=== PATIENT | male | born 1955 | race Caucasian/White ===

== ENCOUNTER 2018-05-13 08:49 | Emergency (ER) | payer OTHER ==
--- NOTE | 2018-05-13 09:51 | UC ---
Shoulder Pain HPI - HPI Summary HPI Summary: PATIENT WORKS IN [employer]. DOES A LOT OF BENDING AND LIFTING. HAS HAD ONE WEEK OF INTERMITTENT LEFT SHOULDER PAIN. NO DISCRETE INJURY. ALSO HAD SOME INTERMITTENT LOW BACK PAIN BUT THIS SEEMS BETTER TODAY. - History of Current Complaint Chief Complaint: UCBackPain Stated Complaint: SHOULDER/BACK PAIN Time Seen by Provider: 05/13/18 09:36 Hx Obtained From: Patient Onset/Duration: Gradual Onset, Lasting Days, Still Present Timing: Intermittent Episode Lasting Severity Initially: Moderate Severity Currently: Moderate Location Of Pain: Is Discrete @ - LEFT SHOULDER Pain Intensity: 8 Pain Scale Used: 0-10 Numeric Character: Aching Aggravating Factor(s): Movement Alleviating Factor(s): Rest Associated Signs And Symptoms: Negative: Swelling, Redness, Bruising, Weakness Related History: Dominant Hand Right - Allergies/Home Medications Allergies/Adverse Reactions: Allergies Allergy/AdvReac Type Severity Reaction Status Date / Time No Known Allergies Allergy Verified 05/13/18 09:04 PMH/Surg Hx/FS Hx/Imm Hx Previously Healthy: Yes - Surgical History Surgical History: Yes Surgery Procedure, Year, and Place: nasal surgery - Family History Known Family History: Positive: Non-Contributory - Social History Alcohol Use: Rare Substance Use Type: None Smoking Status (MU): Heavy Every Day Tobacco Smoker Review of Systems All Other Systems Reviewed And Are Negative: Yes Constitutional: Positive: Negative Skin: Positive: Negative Respiratory: Positive: Negative Cardiovascular: Positive: Negative Gastrointestinal: Positive: Negative Musculoskeletal: Positive: Arthralgia, Myalgia Physical Exam Triage Information Reviewed: Yes Appearance: Well-Appearing, No Pain Distress, Well-Nourished Vital Signs: Initial Vital Signs Temp 99.0 F 05/13/18 09:00 Pulse 78 05/13/18 09:00 Resp 18 05/13/18 09:00 BP 115/71 05/13/18 09:00 Pulse Ox 99 05/13/18 09:00 Vital Signs Reviewed: Yes Eyes: Positive: Conjunctiva Clear ENT: Positive: Hearing grossly normal Neck: Positive: Supple Respiratory: Positive: No respiratory distress, No accessory muscle use Cardiovascular: Positive: Pulses Normal Abdomen Description: Positive: Soft Musculoskeletal: Positive: ROM Intact, No Edema, Other: - TTP LEFT TRAPEZIUS. NEG EMPTY CAN, NEG WINSTON Neurological: Positive: Alert Psychological: Positive: Age Appropriate Behavior Skin: Negative: Rashes Shoulder Course/Dx - Differential Dx/Diagnosis Provider Diagnoses: LEFT TRAPEZIUS MUSCLE STRAIN Discharge - Sign-Out/Discharge Documenting (check all that apply): Patient Departure All imaging exams completed and their final reports reviewed: Yes - Discharge Plan Condition: Stable Disposition: HOME Prescriptions: Cyclobenzaprine TAB* [Flexeril TAB*] 10 mg PO BID PRN #30 tab PRN Reason: Pain Naproxen [Naproxen 500 mg tab] 500 mg PO BID PRN #30 tablet PRN Reason: Pain Patient Education Materials: Muscle Strain (ED) Referrals: Santiago Moralez MD [Medical Doctor] - 2 Weeks Additional Instructions: LEFT SHOULDER X-RAY TODAY SHOWS SOME MILD OSTEOARTHRITIS BUT NO ACUTE BONY INJURY. WEAR THE SLING NEEDED FOR COMFORT. SYMPTOMS SHOULD IMPROVE OVER THE NEXT SEVERAL WEEKS. FOLLOW-UP WITH ORTHOPEDICS IF YOUR SYMPTOMS ARE NOT IMPROVING EXPECTED. NAPROXEN NEEDED FOR DISCOMFORT. TAKE MUSCLE RELAXER BEFORE BED. BE SURE TO GO THROUGH SLOW RANGE OF MOTION AND STRETCHING EXERCISES DAILY TO PREVENT STIFFENING UP AND MAKING THE DISCOMFORT WORSE. USE HEAT AND MASSAGE. - Billing Disposition and Condition Condition: STABLE Disposition: Home
== END 2018-05-13 10:33 | disposition home or self-care (01) ==
LOC: UCEAST 08:49
DX: S46.812A Strain of other muscles, fascia and tendons at shoulder and upper arm level, left arm, initial encounter (principal); M54.5 Low back pain; F17.290 Nicotine dependence, other tobacco product, uncomplicated; X58.XXXA Exposure to other specified factors, initial encounter; Y92.9 Unspecified place or not applicable
CPT/HCPCS: 99202; G0463

== ENCOUNTER 2018-05-14 09:02 | Emergency (ER) | payer OTHER ==
[2018-05-14 09:10] VITALS: BP 112/74
--- NOTE | 2018-05-14 09:25 | UC ---
Upper Extremity HPI - HPI Summary HPI Summary: Patient is 62 year old gentleman who returns today for evaluation of left shoulder pain. He was seen on 05/13/18 and was prescribed muscle relaxant and naproxen which does not seem to relieve his pain. X-rays showed mild AC and glenohumeral joint osteoarthritis. 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 Also reports the pain in the left side lower neck.Pain with any movement. He also reports some left low back which is localized in the lumbar area without any radicular symptoms, numbness or tingling. Again there is no specific injury or trauma that he can recall. - History of Current Complaint Chief Complaint: UCUpperExtremity Stated Complaint: SHOULDER/BACK PAIN Time Seen by Provider: 05/14/18 09:12 Hx Obtained From: Patient Pain Intensity: 8 - Allergies/Home Medications Allergies/Adverse Reactions: Allergies Allergy/AdvReac Type Severity Reaction Status Date / Time No Known Allergies Allergy Verified 05/14/18 09:11 PMH/Surg Hx/FS Hx/Imm Hx - Additional Past Medical History Additional PMH: No significant past medical history Previously Healthy: Yes - Surgical History Surgical History: Yes Surgery Procedure, Year, and Place: nasal surgery - Family History Known Family History: Positive: Non-Contributory - Social History Alcohol Use: Rare Substance Use Type: None Smoking Status (MU): Current Every Day Smoker Type: Cigarettes Amount Used/How Often: 1/2 PPD Review of Systems All Other Systems Reviewed And Are Negative: Yes Constitutional: Positive: Negative Skin: Positive: Negative Eyes: Positive: Negative ENT: Positive: Negative Respiratory: Positive: Negative Cardiovascular: Positive: Negative Gastrointestinal: Positive: Negative Genitourinary: Positive: Negative Musculoskeletal: Positive: Arthralgia - Left shoulder pain, Other: - Left-sided neck pain and low back pain Neurological: Positive: Negative Psychological: Positive: Negative Is Patient Immunocompromised?: No Physical Exam - Summary Physical Exam Summary: Physical Exam: Const: Appears well. No signs of apparent distress present. Alert and oriented x 3. Musculo: Walks with a normal gait. Head/Face: Atraumatic, normocephalic on inspection. Eyes: EOMI and PERRLA in both eyes. Conjunctivae clear. No discharge noted ENT: Hearing normal, TM normal appearing bilaterally . Respiratory: Respirations are unlabored. Lungs clear to auscultation bilaterally, no wheezing , rhonchi or rales noted . CVS: Regular rate and Rhythm, S1S2 normal , no murmurs identified. Extremities: Peripheral circulation is grossly normal. Pulses 2+ Abdomen : Soft non tender , nondistended , Bowel sounds present . No guarding , rebound tenderness or rigidity noted. Skin: No lesions or rash located on the upper extremities or on the lower extremities. Neuro: Cranial nerves II to XII intact, motor and sensory intact. DTR Intact bilaterally. Mood is normal. Affect is normal. Left Shoulder: Inspection and Palpation: No visible deformities noted. No evidence of swelling , erythema or atrophy present. No tenderness over AC joint, SC joint or greater tuberosity/subacromial bursa region. \ There is significant tenderness to palpation in the left trapezius muscle ROM: Glenohumeral joint: Full range of motion in all planes with pain and abduction and forward flexion Strength: supraspinatus 5/5, Infraspinatus 5/5, subscapularis 5/5, External rotation 5/5. Tone: Normal muscle tone of the shoulder. Special tests: Empty can test negative, Neer sign and Gentile test negative, drop arm test negative, lift off test negative, bear hug test negative, cross arm test negative, Yergusson test and speed's test negative. Apprehension test negative. Anterior and posterior drawer test negative. Relocation test negative. [place]'s test negative. Crank labral test negative. No sulcus sign noted. Normal distal sensation and pulses. Lumbar Spine: No loss of the normal lumbar lordosis or step-off. No midline or paraspinal tenderness spine noted. There is no tenderness of the costovertebral angle bilaterally. Stability: No obvious instability. Strength: Flexion, extension, left rotation, left lateral bending, right lateral bending and right rotation strength is intact. ROM: Full Pain-free ROM Special Tests: Straight leg raise is negative bilaterally. Slump test negative bilaterally. Stork test negative bilaterally Neuro: Sensation intact to light touch. Motor and sensory intact. Reflexes: Left DTR's are intact. Right DTR's are intact. Toes downgoing. Coordination normal. Distal pulses intact. Triage Information Reviewed: Yes Vital Signs: Initial Vital Signs Temp 97.4 F 05/14/18 09:07 Pulse 62 05/14/18 09:07 Resp 16 05/14/18 09:07 BP 112/74 05/14/18 09:07 Pulse Ox 100 05/14/18 09:07 Vital Signs Reviewed: Yes Procedures - Procedure Summary Procedure Summary: Procedure note: Left shoulder subacromial space corticosteroid injection: I discussed risks ( including pain, infection, bleeding), benefits, and alternatives (including not injecting). Informed consent was obtained from the patient. Prior to the injection, a time out was performed. Patient was placed in the sitting position. After prepping the skin with alcohol, under sterile conditions left shoulder subacromial space was injected with 5cc 1% preservative free lidocaine without epinephrine, and 1cc dexamethasone (4mg / cc). Images were stored on the machine. Patient tolerated procedure well. No immediate complications were noted. Patient will report immediately with any signs of infection. Post injection instructions were given. Patient will apply ice to the involved area and avoid any exacerbating activities for the next few days Upper Extremity Course/Dx - Course Course Of Treatment: During the visit today, we discussed the findings which are consistent with rotator cuff strain and left trapezius strain and lumbar strain . We discussed further treatment options and alternatives and he opted to proceed with corticosteroid injection of his left shoulder. He will start physical therapy- PD prescription was provided to him . I have prescribed Vicodin to the pharmacy to be taken at bedtime to allow him to sleep better. Narcotic precautions were discussed with him. Patient expressed understanding . Procedure note: Right shoulder subacromial space corticosteroid injection: I discussed risks (including pain, infection, bleeding), benefits, and alternatives (including not injecting). Informed consent was obtained from the patient. Prior to the injection, a time out was performed. Patient was placed in the sitting position. After prepping the skin with alcohol and betadine, under sterile conditions right shoulder subacromial space was injected with 5cc 1% preservative free lidocaine without epinephrine, and 1cc dexamethasone (4mg / cc). Images were stored on the machine. Patient tolerated procedure well. No immediate complications were noted. Patient will report immediately with any signs of infection. Post injection instructions were given. Patient will apply ice to the involved area and avoid any exacerbating activities for the next few days. He will follow up with orthopedics in 1 week - Differential Dx/Diagnosis Provider Diagnoses: Left shoulder rotator cuff strain. Left trapezius strain. Left lumbar strain Discharge - Sign-Out/Discharge Documenting (check all that apply): Patient Departure All imaging exams completed and their final reports reviewed: No Studies - Discharge Plan Condition: Stable Disposition: HOME Prescriptions: Hydrocodone/Acetaminophen [Vicodin 5-300 mg Tablet] 1 each PO BEDTIME 7 Days #7 tablet MDD 1 Patient Education Materials: Cervical Strain (ED), Rotator Cuff Injury (ED) Referrals: Santiago Moralez MD [Medical Doctor] - 1 Week No Primary Care Phys,NOPCP [Primary Care Provider] - Additional Instructions: Please start taking the medication as prescribed to the pharmacy . Start PT Follow up with orthopedics in 1 week if no improvement . Return to Urgent care / ER if symptoms get worse. - Billing Disposition and Condition Condition: STABLE Disposition: Home
[2018-05-14] MEDS ORDERED: Lidocaine 2% PF * 5 ML VIAL INJ ONE (09:33)
[2018-05-14] MEDS ORDERED: Dexamethasone IV* 4 MG/ML 1 ML (4 MG) IM ONE (09:34)
--- NOTE | 2018-05-16 12:09 | UC ---
- Progress Note Progress Note: Patient called the clinic patient called the clinic and let us know that the pain medicine is not helping with his left shoulder pain. The patient is on naproxen Flexeril and hydrocodone. He had a steroid injection into his left shoulder on May 14, 2018. I spoke with the patient on the phone. He states the pain is better when he raises his arm up over his head. We discussed the possibility of other causes of the pain to include chest pain and he at this time denied any concern of chest pain. The plan is to replace the hydrocodone with oxycodone and I called in a prescription for oxycodone 5 mg 1-2 by mouth every 4 hours when necessary. Patient will follow-up with orthopedics. We discussed that if he has any other concerns that this pain is not from the shoulder is any concern of chest pain or any other cause that he needed to get reevaluated in the emergency department and he agreed. Discharge - Sign-Out/Discharge Documenting (check all that apply): Patient Departure All imaging exams completed and their final reports reviewed: No Studies - Discharge Plan Condition: Stable Disposition: HOME Prescriptions: Hydrocodone/Acetaminophen [Vicodin 5-300 mg Tablet] 1 each PO BEDTIME 7 Days #7 tablet MDD 1 oxyCODONE TAB* [Roxycodone TAB 5 mg*] 5 mg PO Q4H PRN #40 tab MDD 8 PRN Reason: Pain Patient Education Materials: Cervical Strain (ED), Rotator Cuff Injury (ED) Referrals: Santiago Moralez MD [Medical Doctor] - 1 Week No Primary Care Phys,NOPCP [Primary Care Provider] - Additional Instructions: Please start taking the medication as prescribed to the pharmacy . Start PT Follow up with orthopedics in 1 week if no improvement . Return to Urgent care / ER if symptoms get worse. - Billing Disposition and Condition Condition: STABLE Disposition: Home
== END 2018-05-14 10:08 | disposition home or self-care (01) ==
LOC: UCEAST 09:02
DX: S43.422A Sprain of left rotator cuff capsule, initial encounter (principal); S46.812A Strain of other muscles, fascia and tendons at shoulder and upper arm level, left arm, initial encounter; S39.012A Strain of muscle, fascia and tendon of lower back, initial encounter; X58.XXXA Exposure to other specified factors, initial encounter; Z51.89 Encounter for other specified aftercare; F17.210 Nicotine dependence, cigarettes, uncomplicated
CPT/HCPCS: 20610; 99212; G0463; J1100

== ENCOUNTER 2018-05-19 08:44 | Emergency (ER) | payer OTHER ==
--- NOTE | 2018-05-19 09:05 | ED ---
Upper Extremity Pain - HPI Summary HPI Summary: Patient is a 62 y/o M w/ c/o left shoulder pain, left neck pain, and upper back pain. He states that pain onset a week ago and has progressively worsened. No injury reported. Patient has gone to urgent care on two separate occasions last week and states he was prescribed narpoxen, vicodin, oxycodone. He notes that he has also received a shot at . However, he states that pain medication and treatment has not alleviated pain. Pain is described as an ache and is noted to be intermittent. Intermittent tingling down LUE is also reported. He notes movement aggravates pain. 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 Patient notes that he has follow up appointment with orthopedics in two days, but states pain was intolerable at work and decided to come to ED. He notes that he drove himself in private vehicle and states that pain in shoulder was severe to the point that he could only hold onto the steering wheel with his right hand. He denies chest pain, SOB , dizziness, fever, diaphoresis, chills. Patient denies any other medical problems, states he is not on any other medication, does not have PCP as he recently moved to [place]. He smokes cigarettes, rarely consumes alcohol. He denies FMHx of blood clots, aneurysms. Fever, chills, erythema of eyes, sore throat, chest pain, SOB, cough, abdominal pain, vomiting, nausea, dysuria, hematuria, edema, rash and dizziness are not reported. On triage, pain is rated 8/10, nothing is noted to aggravate/ alleviate Sx. Home medications and allergies are reviewed. - History of Current Complaint Chief Complaint: LIYAHhouGhada Stated Complaint: SHOULER INJURY Time Seen by Provider: 05/19/18 08:52 Hx Obtained From: Patient Mechanism Of Injury: Other - no injury reported Onset/Duration: Started Weeks Ago - one week, Still Present, Worse Since Timing: Intermittent, Lasting Weeks - one week Severity Initially: Moderate Severity Currently: Severe - 8/10 Pain Location: Elbow - left, Other: - left neck, upper back Character: Aching Aggravating Factor(s): Movement Alleviating Factor(s): Nothing Associated Signs & Symptoms: Positive: Numbness/Tingling - LUE tingling, intermittent, Back Pain, Other - Fever, chills, erythema of eyes, sore throat, chest pain, SOB, cough, abdominal pain, vomiting, nausea, dysuria, hematuria, edema, rash and dizziness are not reported. Negative: Fever, Chest Pain, SOB, Neck Pain, Diaphoresis, Nausea, Vomiting - Allergies/Home Medications Allergies/Adverse Reactions: Allergies Allergy/AdvReac Type Severity Reaction Status Date / Time No Known Allergies Allergy Verified 05/14/18 09:11 PMH/Surg Hx/FS Hx/Imm Hx Sensory History: Denies: Hx Legally Blind, Hx Deafness Opthamlomology History: Denies: Hx Legally Blind EENT History: Denies: Hx Deafness - Surgical History Surgery Procedure, Year, and Place: nasal surgery Infectious Disease History: No Infectious Disease History: Denies: Traveled Outside the [place] in Last 30 Days - Family History Known Family History: Negative: Blood Disorder - no FMHx of blood clots, aneurysms - Social History Alcohol Use: Rare Substance Use Type: Reports: None Smoking Status (MU): Current Every Day Smoker Type: Cigarettes Amount Used/How Often: 1/2 PPD Review of Systems Negative: Fever, Chills, Skin Diaphoresis Negative: Erythema Negative: Sore Throat Negative: Chest Pain Negative: Shortness Of Breath, Cough Negative: Abdominal Pain, Vomiting, Nausea Negative: dysuria, hematuria Positive: Myalgia - left neck, left shoulder, upper back pain . Negative: Edema Negative: Rash Neurological: Other - NEGATIVE - DIZZINESS; POSITIVE - TINGLING DOWN LUE All Other Systems Reviewed And Are Negative: Yes Physical Exam - Summary Physical Exam Summary: Constitutional: Well-developed, Well-nourished, Alert. (-) Distressed Skin: Warm, Dry HENT: Normocephalic; Atraumatic Eyes: Conjunctiva normal Neck: Musculoskeletal ROM normal neck. (-) JVD, (-) Stridor, (-) Tracheal deviation Cardio: Rhythm regular, rate normal, Heart sounds normal; Intact distal pulses; The pedal pulses are 2+ and symmetric. Radial pulses are 2+ and symmetric. (-) Murmur Pulmonary/Chest wall: Effort normal. (-) Respiratory distress, (-) Wheezes, (-) Rales Abd: Soft, (-) epigastric tenderness, (-) Distension, (-) Guarding, (-) Rebound Musculoskeletal: (-) Edema (+) reproducible pain with backwards shoulder rotation on left side. Lymph: (-) Cervical adenopathy Neuro: Alert, Oriented x3 Psych: Mood and affect Normal Triage Information Reviewed: Yes Vital Signs On Initial Exam: Initial Vitals Temp Pulse Resp BP Pulse Ox 99.0 F 101 20 126/86 97 05/19/18 08:45 05/19/18 08:45 05/19/18 08:45 05/19/18 08:45 05/19/18 08:45 Vital Signs Reviewed: Yes Diagnostics - Vital Signs Vital Signs Temp Pulse Resp BP Pulse Ox 05/19/18 08:45 99.0 F 101 20 126/86 97 - Laboratory Result Diagrams: 05/19/18 09:29 05/19/18 09:29 Lab Statement: Any lab studies that have been ordered have been reviewed, and results considered in the medical decision making process. - Radiology CXR Radiology Interpretation Completed By: Radiologist Summary of Radiographic Findings: IMPRESSION: HYPERINFLATION, CONSISTENT WITH COPD. NO ACTIVE CARDIOPULMONARY DISEASE. THIS REPORT WAS REVIEWED BY ED PHYSICIAN. - EKG 0915 Cardiac Rate: NL - rate of 88 BPM EKG Rhythm: Sinus Rhythm Summary of EKG Findings: NSR with rate of 88 BPM, no STEMI Re-Evaluation - Re-Evaluation First Eval Re-Evaluation Time: 11:35 Comment: Discussed results of labs and tests, patient was instructed to keep his ortho appointment in two days. Course/Dx - Course Course Of Treatment: Patient is a 62 y/o M w/ c/o left shoulder pain, left neck pain, and upper back pain. He states that pain onset a week ago and has progressively worsened. No injury reported. Patient has gone to urgent care on two separate occasions last week and states he was prescribed narpoxen, vicodin , oxycodone. He notes that he has also received a shot at . However, he states that pain medication and treatment has not alleviated pain. Pain is described as an ache and is noted to be intermittent. Intermittent tingling down LUE is also reported. He notes movement aggravates pain. 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 Patient notes that he has follow up appointment with orthopedics in two days, but states pain was intolerable at work and decided to come to ED. He notes that he drove himself in private vehicle and states that pain in shoulder was severe to the point that he could only hold onto the steering wheel with his right hand. He denies chest pain, SOB, dizziness, fever, diaphoresis, chills. Patient denies any other medical problems, states he is not on any other medication, does not have PCP as he recently moved to [place]. He smokes cigarettes, rarely consumes alcohol. He denies FMHx of blood clots, aneurysms. On physical exam, reproducible pain with backwards shoulder rotation on left side. EKG showed sinus rhythm with rate of 88 BPM, no STEMI. CXR IMPRESSION: HYPERINFLATION, CONSISTENT WITH COPD. NO ACTIVE CARDIOPULMONARY DISEASE. UA showed trace ketones, positive urobilinogen. Labs showed MCH 32, MPV 7.1, BUN 28, BUN/ Creatinine 29.5, glucose 100, lactic acid 0.8, trop 0, CRP 5.05,. During ED course, patient received toradol 60 mg IM ED ONCE ONE, Lidoderm 5% patch TRANSDERM ONCE ONE, Deltasone tab 60 mg PO ED ONCE ONE. Cervical radiculopathy vs rotator cuff injury, no signs of acute CAD. Discussed results of labs and tests, patient was instructed to keep his ortho appointment in two days. - Diagnoses Provider Diagnoses: Left shoulder pain Discharge - Sign-Out/Discharge Documenting (check all that apply): Patient Departure - discharge - Discharge Plan Condition: Stable Disposition: HOME Prescriptions: Lidocaine PATCH 5%* [Lidoderm 5% Patch*] 1 patch TRANSDERM DAILY #14 patch predniSONE TAB* [Deltasone TAB*] 50 mg PO DAILY #4 tab Patient Education Materials: Shoulder Pain (ED) Forms: *Work Release Referrals: [facility] [Outside] Santiago Moralez MD [Medical Doctor] - 2 Days Additional Instructions: KEEP YOUR SCHEDULED ORTHOPEDIC APPOINTMENT IN TWO DAYS. RETURN TO ED FOR ANY NEW OR WORSENING SYMPTOMS. - Attestation Statements Document Initiated by Scribe: Yes Documenting Scribe: MT SEARS Provider For Whom Scribe is Documenting (Include Credential): SALAZAR KATE MD Scribe Attestation: MT Dawson , scribed for SALAZAR KATE MD on 05/19/18 at 1214. Status of Scribe Document: Ready
[2018-05-19] MEDS ORDERED: predniSONE TAB* 20 MG PO ONE (09:06)
[2018-05-19] MEDS ORDERED: Ketorolac INJ* 60 MG/2 ML VIAL IM ONE (09:06)
[2018-05-19] MEDS ORDERED: Lidocaine PATCH 5%* 1 PATCH TRANSDERM ONE (09:07)
[2018-05-19 09:37] LABS: ABS Basophils 0 10^3/ul (0-0.2); ABS Eosinophils 0.3 10^3/ul (0-0.6); ABS Lymphocytes 1.3 10^3/ul (1.0-4.8); ABS Monocytes 0.5 10^3/ul (0-0.8); ABS Neutrophils 5.5 10^3/ul (1.5-7.7); ABS Nucleated RBC 0 10^3/ul; Eosinophil % 3.5 %; Hematocrit 47 % (42-52); Hemoglobin 16.3 g/dl (14.0-18.0); Lymphocyte % 17.3 %; Mean Corpuscular HGB Conc 35 g/dl (31-36); Mean Corpuscular Hemoglobin 32 pg (27-31); Mean Corpuscular Volume 93 fL (80-94); Mean Platelet Volume 7.1 fL (7.4-10.4); Nucleated Red Blood Cells % 0.2; Platelet Count 204 10^3/ul (150-450); Red Blood Count 5.07 10^6/ul (4.00-5.40); Red Cell Distribution Width 14 % (10.5-15); White Blood Count 7.6 10^3/ul (3.5-10.8)
[2018-05-19 09:43] LABS: INR 0.87 (0.77-1.02)
[2018-05-19 10:15] LABS: EGFR Non-African American 80.1 (>60)
[2018-05-19 10:42] LABS: Urine Appearance Cloudy; Urine Blood Negative (Negative); Urine Color Yellow; Urine Ketones Trace (Negative); Urine Protein Negative (Negative); Urine Specific Gravity 1.025 (1.010-1.030); Urine Urobilinogen Positive (Negative)
[2018-05-19 11:55] VITALS: BP 110/67
[2018-05-19] MEDS ORDERED: Lidocaine Patch REMOVE* 1 NOTE MISC SCH (21:00)
== END 2018-05-19 11:46 | disposition home or self-care (01) ==
LOC: ED 08:44
DX: M25.512 Pain in left shoulder (principal); M54.2 Cervicalgia; M54.9 Dorsalgia, unspecified; F17.210 Nicotine dependence, cigarettes, uncomplicated
CPT/HCPCS: 36415; 71046; 80053; 81003; 83605; 84484; 85025; 85610; 86140; 87040; 93005; 96372; 99282; A9270-GY; J1885; J7512